=== PATIENT | male | born 1960 | race Hispanic/Latino ===

== ENCOUNTER 2016-10-15 08:44 | Day surgery (SDC) | payer MEDICAID ==
[2016-10-09 13:17] VITALS: BMI 29.4
[2016-10-15] MEDS ORDERED: Midazolam 2 MG/2 ML VIAL ONE (10:04)
[2016-10-15] MEDS ORDERED: Propofol 10 mg/ml Inj (20 ML) ONE (10:04)
[2016-10-15] MEDS ORDERED: Lactated Ringer's 1,000 ML IV ONE (10:35)
[2016-10-15] MEDS ORDERED: Gentamicin 160 MG in Sodium Chloride 0.9% 100 ML IVPB ONE (10:36)
[2016-10-15] MEDS ORDERED: Gentamicin 80 mg in 0.9% NS 160 MG/200 ML BAG IVPB ONE (10:37)
[2016-10-15] MEDS ORDERED: cefTRIAXone IV 1 gm in Dextros 50 ML IVPB ONE (10:37)
[2016-10-15] MEDS ORDERED: Lidocaine 2% Jelly (Uro-Jet) ONE (11:06)
[2016-10-15 14:07] VITALS: BP 123/69; PULSE 59; RESP 18; TEMP 97.4; O2SAT 100
--- NOTE | 2016-10-15 20:48 | OP ---
PROCEDURE DATE: 10/15/2016 PREOPERATIVE DIAGNOSIS: Elevated prostate-specific antigen 4.96. POSTOPERATIVE DIAGNOSIS: Elevated prostate-specific antigen 4.96. PROCEDURE: Transrectal ultrasound diagnostic, transrectal ultrasound guidance, and prostatic biopsy. SURGEON: Arias Denson MD OPERATIVE PROCEDURE: The patient was brought to the operating room. He confirmed he had not taken any NSAIDs for over a week. He was prepped and draped in the usual fashion and premedicated with gentamicin 160 mg and Rocephin 1 g IV piggyback. He was placed under conscious sedation in lithotomy position. The B and K transducer was introduced into the rectum after the rectum was cleansed with Betadine. A measurement of the prostatic volume was 37 mL. No hypoechoic lesions were noted. We now turned our attention towards biopsy. The prostate was divided into 6 sections and 2 biopsies were obtained from each section and sent in specimen cups. We then maintained pressure with the transducer to promote hemostasis for 5 minutes and upon removal, there was no bleeding was noted. The patient tolerated the procedure well. Arias Denson MD
== END 2016-10-15 13:10 | disposition home or self-care (01) ==
LOC: C.SDS 08:44
PROVIDERS: ATTEND Urology
DX: R97.20 Elevated prostate specific antigen [PSA] (principal)
CPT/HCPCS: 55700; 88305; 88342; J0696; J1580; J7120